=== PATIENT | male | born 1935 | race American Indian/Alaskan Native ===

== ENCOUNTER 2016-11-16 10:17 | Outpatient (CLI) | payer MEDICARE, BC ==
--- NOTE | 2016-11-16 12:23 | Cat Scan Report ---
CT CHEST WITHOUT CONTRAST INDICATION: Persistent cough, bronchitis. COMPARISON: 02/16/[address] FINDINGS: Noncontrast chest CT demonstrates stable heart and great vessels, including mild cardiomegaly, pulmonary arterial hypertension and borderline ascending aortic aneurysm with approximately 4 cm AP caliber. Few atherosclerotic calcifications. Assessment of the great vessels and for detecting subtle lymphadenopathy limited due to lack of IV contrast. No evidence of significant mediastinal or axillary lymphadenopathy though suspected. Patent airway. Normal thyroid. No focal suspicious lung nodules. Mild bibasilar atelectasis or scarring. No effusions. Slight nonspecific air-filled distal esophageal prominence. Right hemidiaphragm mildly elevated. Stable cholecystectomy clips, approximately 1.3 cm left adrenal lateral limb nodule/prominence and mild bilateral perinephric stranding. Mild increased mesenteric stranding, including few small mesenteric lymph nodes with surrounding haziness/"nolberto mesentery" partially imaged. Few small descending colon diverticula incidentally noted. Multilevel thoracic spine predominantly right-sided degenerative osteophytes. CONCLUSION: No acute significant chest process or interval change with various incidental findings again noted, as detailed above. Thank you for the opportunity to participate in this patient's care.
== END 2016-11-16 10:18 | disposition home or self-care (01) ==
LOC: CT 10:17
PROVIDERS: ATTEND Specialist
DX: J40 Bronchitis, not specified as acute or chronic (principal); M47.894 Other spondylosis, thoracic region; J98.11 Atelectasis; I70.0 Atherosclerosis of aorta
CPT/HCPCS: 71250